=== PATIENT | female | born 1970 | race Caucasian/White ===

== ENCOUNTER 2021-07-11 13:08 | Emergency (ER) | payer OTHER | END 2021-07-11 14:20 | disposition home or self-care (01) | LOC: BURERS 13:08 | DX: S82.891D Other fracture of right lower leg, subsequent encounter for closed fracture with routine healing (principal); E11.9 Type 2 diabetes mellitus without complications; I10 Essential (primary) hypertension; E78.5 Hyperlipidemia, unspecified; I25.2 Old myocardial infarction; I25.10 Atherosclerotic heart disease of native coronary artery without angina pectoris; X58.XXXD Exposure to other specified factors, subsequent encounter ==